=== PATIENT | male | born 2005 | race Two or more races ===

== ENCOUNTER → 2024-07-03 | Outpatient (CLI) | payer MEDICAID, SELFPAY ==
--- NOTE | 2024-07-03 11:46 | XR_ITS ---
Examination: Abdomen sonogram, complete Date and time of exam: July 03, 2024 1149 hours INDICATIONS: Stabbing right upper abdominal pain with fever nausea one month. Technique: Multiple real-time grayscale transabdominal sonographic images of the abdomen have been obtained. Findings: Normal gallbladder Normal common bile duct 0.2 cm Pancreatic head 3.0 cm Aorta not enlarged Liver 16.7 cm smooth contour no focal liver lesions Normal hepatopedal portal venous flow Patent IVC Right kidney 10.7 x 6.6 x 5.9 cm cortex 2.0 cm Left kidney 11.9 x 6.0 x 5.9 cm cortex 2.3 cm No hydronephrosis or renal calculi Spleen 11.6 cm IMPRESSION: Normal gallbladder Mild hepatomegaly no focal liver lesions
== END | disposition home or self-care (01) ==
PROVIDERS: PCP Family Medicine; Referring Provider Nurse Practitioner Family; Visit Provider Nurse Practitioner Family
DX: R16.0 Hepatomegaly, not elsewhere classified (principal)
CPT/HCPCS: 76700